=== PATIENT | male | born 1980 | race Hispanic/Latino ===

== ENCOUNTER 2020-01-07 23:38 | Observation (INO) | payer BC ==
[2020-01-08] MEDS ORDERED: NA CHLORIDE 0.9% 1,000 ML ONE ×2 (00:06→02:03)
[2020-01-08 00:53] LABS: Absolute Lymphocytes (CBC) 1.7 K/uL (0.7-4.9); Basophils % 0.2 % (0-1.3); Hematocrit 42.7 % (39.6-49.0); Lymphocytes % 11.1 % (15.3-44.8); MPV 10.5 fL (7.6-11.3)
[2020-01-08 01:27] LABS: Bilirubin Direct 0.2 mg/dL (0-0.2); Bilirubin Total 1.8 mg/dL (0.2-1.0); Potassium 3.4 mmol/L (3.5-5.1); Protein, Total 7.4 g/dL (6.4-8.2)
--- NOTE | 2020-01-08 02:23 | ER ---
Nurse's Notes [facility] Name: Rosales Clement IV Age: 39 yrs Sex: Male : 1980 Arrival Date: 01/07/2020 Time: 23:38 Bed 2 Private MD: Diagnosis: Rhabdomyolysis;Acute Kidney Injury Presentation: 01/06 23:40 Chief complaint: EMS states: "the pt reported working at the [employer] and was jd3 feeling like he got overheated and feeling crampy around 1800. he drank some water and rested then went back to work to finish his day. by 1999 when he got off he was hurting all over reporting he felt like everything was cramping. he said he got home and drank some more water and took electrolyte tabs. when we got there the pt was having a hard time even standing because of the pain. we started an IV and gave 1 L of NS.". Coronavirus screen: Proceed with normal triage. Ebola Screen: Patient negative for fever greater than or equal to 101.5 degrees Fahrenheit, and additional compatible Ebola Virus Disease symptoms. Initial Sepsis Screen: Does the patient meet any 2 criteria? No. Patient's initial sepsis screen is negative. Does the patient have a suspected source of infection? No. Patient's initial sepsis screen is negative. Risk Assessment: Do you want to hurt yourself or someone else? Patient reports no desire to harm self or others. Onset of symptoms was January 07, 2020. 23:40 Method Of Arrival: EMS: [facility] jd3 23:40 Acuity: HERIBERTO 3 jd3 Historical: - Allergies: 23:51 No Known Allergies; jd3 - Home Meds: 23:51 Adderall oral oral [Active]; jd3 - PMHx: 23:51 ADD/ADHD; jd3 - PSHx: 23:51 None; jd3 - Immunization history:: Adult Immunizations up to date. - Social history:: Smoking status: Patient reports the use of cigarette tobacco products, smokes one-half pack cigarettes per day. Screenin/27 00:04 Abuse screen: Denies threats or abuse. Nutritional screening: No deficits noted. jd3 Tuberculosis screening: No symptoms or risk factors identified. Fall Risk Ambulatory Aid- None/Bed Rest/Nurse Assist (0 pts). Gait- Normal/Bed Rest/Wheelchair (0 pts) Mental Status- Oriented to own ability (0 pts). Total Khoury Fall Scale indicates No Risk (0-24 pts). Assessment: 01/06 23:52 General: Appears in no apparent distress. uncomfortable, Behavior is calm, cooperative, jd3 appropriate for age. Pain: Complains of pain in right arm, left arm, right leg and left leg Quality of pain is described as crampy. Neuro: Level of Consciousness is awake, alert, obeys commands, Oriented to person, place, time, situation. Cardiovascular: Denies chest pain, Capillary refill < 3 seconds Patient's skin is warm and dry. Respiratory: Airway is patent Respiratory effort is even, unlabored, Respiratory pattern is regular, symmetrical, Denies cough, shortness of breath. GI: Abdomen is round non-distended, Abd is soft and non tender X 4 quads. Patient currently denies diarrhea, nausea, vomiting. : No signs and/or symptoms were reported regarding the genitourinary system. EENT: No signs and/or symptoms were reported regarding the EENT system. Derm: Skin is intact, Skin is dry, Skin is normal, Skin temperature is warm. Musculoskeletal: Circulation, motion, and sensation intact. Range of motion: intact in all extremities. 01/07 00:32 Reassessment: Patient appears in no apparent distress at this time. No changes from jd3 previously documented assessment. Patient and/or family updated on plan of care and expected duration. Pain level reassessed. Patient is alert, oriented x 3, equal unlabored respirations, skin warm/dry/pink. 01:36 Reassessment: Patient appears in no apparent distress at this time. Patient and/or mg2 family updated on plan of care and expected duration. Pain level reassessed. Patient is alert, oriented x 3, equal unlabored respirations, skin warm/dry/pink. 02:31 Reassessment: Patient appears in no apparent distress at this time. Patient and/or jd3 family updated on plan of care and expected duration. Pain level reassessed. Patient is alert, oriented x 3, equal unlabored respirations, skin warm/dry/pink. Patient states feeling better. 03:34 Reassessment: Patient appears in no apparent distress at this time. Patient and/or jd3 family updated on plan of care and expected duration. Pain level reassessed. Patient is alert, oriented x 3, equal unlabored respirations, skin warm/dry/pink. Vital Signs: 01/06 23:51 BP 125 / 56; Pulse 87; Resp 18 S; Temp 98.4(O); Pulse Ox 100% on R/A; Weight 102.06 kg jd3 (R); Height 5 ft. 6 in. (167.64 cm) (R); Pain 6/10; 01/07 00:33 BP 119 / 69; Pulse 95; Resp 17 S; Pulse Ox 100% on R/A; jd3 01:36 BP 132 / 72; Pulse 89; Resp 18; Pulse Ox 99% on R/A; mg2 02:31 BP 118 / 64; Pulse 93; Resp 17 S; Pulse Ox 100% on R/A; jd3 03:35 BP 100 / 50; Pulse 88; Resp 16 S; Pulse Ox 100% on R/A; jd3 01/06 23:51 Body Mass Index 36.32 (102.06 kg, 167.64 cm) [facility] ED Course: 01/06 23:38 Patient arrived in ED. ds1 23:41 Maxwell Arellano PA is PHCP. jmm 23:41 Pako Rodrigues MD is Attending Physician. jm 23:50 Triage completed. jd3 23:51 Arm band placed on. j 01/07 00:03 Venkatesh Candelario, RN is Primary Nurse. jd3 00:05 Patient has correct armband on for positive identification. Bed in low position. Call [facility] light in reach. Side rails up X 1. monitor car operator on. Pulse ox on. NIBP on. 00:05 Maintain EMS IV. Dressing intact. Good blood return noted. Site clean \\T\\ dry. Gauge \\T\\ eve 3 site: 20 G right AC. 02:17 Dmitry Pedro is Hospitalizing Provider. jm 03:34 No provider procedures requiring assistance completed. Patient admitted, IV remains in j place. Administered Medications: 00:00 Drug: NS 0.9% 1000 ml Route: IV; Rate: 1 bolus; Site: right antecubital; mg2 01:00 Follow up: Response: No adverse reaction; IV Status: Completed infusion; IV Intake: jd3 1000ml 01:55 Drug: NS 0.9% 1000 ml Route: IV; Rate: 1 bolus; Site: right antecubital; jd3 02:32 Follow up: Response: No adverse reaction; IV Status: Completed infusion; IV Intake: jd3 1000ml Intake: 01:00 IV: 1000ml; Total: 1000ml. jd3 02:32 IV: 1000ml; Total: 2000ml. jd3 Outcome: 02:22 Decision to Hospitalize by Provider. jesusita 03:34 Admitted to Med/surg accompanied by tech, via wheelchair, room 209, with chart, Report jd3 called to Keisha Dinh 03:34 Condition: stable 03:34 Instructed on the need for admit, Demonstrated understanding of instructions. 03:59 Patient left the ED. derian Signatures: Maxwell Arellano PA PA jmm Sanford, Demi ds1 Venkatesh Candelario, RN RN jd3 Dallin Mayfield RN RN mg2
--- NOTE | 2020-01-08 02:23 | EDPHYS ---
Physician Documentation [facility] Name: Rosales Clement IV Age: 39 yrs Sex: Male : 1980 Arrival Date: 01/07/2020 Time: 23:38 Bed 2 Private MD: ED Physician Pako Rodrigues HPI: 01/06 23:49 This 39 yrs old Male presents to ER via Unassigned with complaints of jmm Abdominal Cramping. 23:49 This is a 39 year old male with no chronic medical conditions that presents to the ED jmm with complaints of diffuse cramping which began earlier this evening after he got home from work. Patient states he worked outside earlier today for a prolonged period of time. Patient took gatorade with no relief. Given IFV en route by ems which decreased cramping. . Historical: - Allergies: 23:51 No Known Allergies; jd3 - Home Meds: 23:51 Adderall oral oral [Active]; jd3 - PMHx: 23:51 ADD/ADHD; jd3 - PSHx: 23:51 None; jd3 - Immunization history:: Adult Immunizations up to date. - Social history:: Smoking status: Patient reports the use of cigarette tobacco products, smokes one-half pack cigarettes per day. ROS: 23:49 Constitutional: Negative for fever, chills, and weight loss, Cardiovascular: Negative jmm for chest pain, palpitations, and edema, Respiratory: Negative for shortness of breath, cough, wheezing, and pleuritic chest pain. 23:49 Abdomen/GI: Positive for abdominal pain, Negative for vomiting. 23:49 Back: Positive for pain with movement. 23:49 All other systems are negative. Exam: 23:49 Constitutional: This is a well developed, well nourished patient who is awake, alert, jmm and in no acute distress. Head/Face: atraumatic. Eyes: EOMI, no conjunctival erythema appreciated ENT: Moist Mucus Membranes Neck: Trachea midline, Supple Chest/axilla: Normal chest wall appearance and motion. Cardiovascular: Regular rate and rhythm. No edema appreciated Respiratory: Normal respirations, no respiratory distress appreciated Abdomen/GI: Non distended, soft Back: Normal ROM Skin: General appearance color normal MS/ Extremity: Moves all extremities, no obvious deformities appreciated, no edema noted to the lower extremities Neuro: Awake and alert, normal gait Psych: Behavior is normal, Mood is normal, Patient is cooperative and pleasant Vital Signs: 23:51 BP 125 / 56; Pulse 87; Resp 18 S; Temp 98.4(O); Pulse Ox 100% on R/A; Weight 102.06 kg jd3 (R); Height 5 ft. 6 in. (167.64 cm) (R); Pain 11/21; 01/07 00:33 BP 119 / 69; Pulse 95; Resp 17 S; Pulse Ox 100% on R/A; jd3 01:36 BP 132 / 72; Pulse 89; Resp 18; Pulse Ox 99% on R/A; mg2 02:31 BP 118 / 64; Pulse 93; Resp 17 S; Pulse Ox 100% on R/A; jd3 03:35 BP 100 / 50; Pulse 88; Resp 16 S; Pulse Ox 100% on R/A; jd3 01/06 23:51 Body Mass Index 36.32 (102.06 kg, 167.64 cm) [facility] MDM: 01/06 23:42 Patient medically screened. [facility] 01/07 02:15 Data reviewed: vital signs, nurses notes. Counseling: I had a detailed discussion with [facility] the patient and/or guardian regarding: the historical points, exam findings, and any diagnostic results supporting the discharge/admit diagnosis, lab results, the need for further work-up and treatment in the hospital. ED course: I discussed the patient with Dr. Pedro whom accepted admission. . 01/06 23:48 Order name: Basic Metabolic Panel; Complete Time: 02:06 [facility] 01/06 23:48 Order name: CBC with Diff; Complete Time: 00:57 [facility] 01/06 23:48 Order name: Hepatic Function; Complete Time: 02:06 [facility] 01/06 23:48 Order name: Lipase; Complete Time: 02:06 [facility] 01/06 23:48 Order name: CPK; Complete Time: 02:06 [facility] 01/06 23:48 Order name: IV Saline Lock; Complete Time: 00:00 [facility] 01/06 23:48 Order name: Labs collected and sent; Complete Time: 00:01 [facility] Administered Medications: 00:00 Drug: NS 0.9% 1000 ml Route: IV; Rate: 1 bolus; Site: right antecubital; mg2 01:00 Follow up: Response: No adverse reaction; IV Status: Completed infusion; IV Intake: jd3 1000ml 01:55 Drug: NS 0.9% 1000 ml Route: IV; Rate: 1 bolus; Site: right antecubital; jd3 02:32 Follow up: Response: No adverse reaction; IV Status: Completed infusion; IV Intake: jd3 1000ml Disposition: 06:07 Co-signature as Attending Physician, Pako Rodrigues MD I agree with the assessment and tw4 plan of care. Disposition: 01/08/20 02:22 Hospitalization ordered by Dmitry Pedro for Observation. Preliminary diagnosis are Rhabdomyolysis, Acute Kidney Injury. - Bed requested for Telemetry/MedSurg (observation). - Status is Observation. jd3 - Condition is Stable. - Problem is new. - Symptoms have improved. Signatures: Dispatcher [employer] EDMS Maxwell Arellano PA PA jmm Garcia, Cindy, BARBER RN cg Venkatesh Candelario RN RN Pako Piña MD MD tw Dallin Mayfield RN RN mg2 Corrections: (The following items were deleted from the chart) 03:16 02:22 Hospitalization Ordered by Dmitry Pedro for Observation. Preliminary diagnosis cg is Rhabdomyolysis; Acute Kidney Injury. Bed requested for Telemetry/MedSurg (observation). Status is Observation. Condition is Stable. Problem is new. Symptoms have improved. temo 03:59 03:16 01/08/2020 02:22 Hospitalization Ordered by Dmitry Pedro for Observation. jd3 Preliminary diagnosis is Rhabdomyolysis; Acute Kidney Injury. Bed requested for Telemetry/MedSurg (observation). Status is Observation. Condition is Stable. Problem is new. Symptoms have improved. cg
--- NOTE | 2020-01-08 03:01 | P.HP ---
Certification for Inpatient Patient admitted to: Observation With expected LOS: <2 Midnights Practitioner: I am a practitioner with admitting privileges, knowledge of patient current condition, hospital course, and medical plan of care. Services: Services provided to patient in accordance with Admission requirements found in Title 42 Section 412.3 of the Code of Federal Regulations Patient History Date of Service: 01/08/20 Reason for admission: Muscle spasms History of Present Illness: 39-year-old gentleman with no known medical history presented to the ED with a complaint of muscle spasms all over, which started this afternoon. Patient stated [place] [employer] He had to pause work due to the muscle spasms and sweating. Symptoms worsened to the point he could not get up and walk. Spouse called EMS and patient was brought to the ED. He had blood work in the ED shows acute renal failure with elevated creatinine and elevated CK. He also has leukocytosis. Patient is placed under observation for further management JEMAL and rhabdomyolysis. - Past Medical/Surgical History Diabetic: No -: None - Family History Mother -: Diabetes - Social History Smoking Status: Current every day smoker Alcohol use: Yes Place of Residence: Home Review of Systems Other: Except as documented, all other systems reviewed and negative. Physical Examination - Physical Exam General: Alert, In no apparent distress, Oriented x3 HEENT: Normocephalic, Mucous membr. moist/pink, Sclerae nonicteric Respiratory: Clear to auscultation bilaterally, Normal air movement Gastrointestinal: Normal bowel sounds, Soft and benign, Non-distended, No tenderness Musculoskeletal: No swelling, No erythema Integumentary: No rashes Neurological: Normal speech, Normal strength at 5/5 x4 extr, Cranial nerves 3-12 intact - Studies Laboratory Data (last 24 hrs) 01/08/20 00:00: WBC 15.4 H, Hgb 14.7, Hct 42.7, Plt Count 245 01/08/20 00:00: Sodium 138, Potassium 3.4 L, BUN 23 H, Creatinine 2.39 H, Glucose 109 H, Total Bilirubin 1.8 H, AST 35, ALT 39, Alkaline Phosphatase 115, Lipase 63 L Assessment and Plan - Problems (Diagnosis) (1) Acute renal failure Current Visit: Yes Status: Acute (2) Rhabdomyolysis Current Visit: Yes Status: Acute (3) Leukocytosis Current Visit: Yes Status: Acute - Plan Place under observation. Rehydrate with IV normal saline. Monitor renal function and electrolytes. Daily CK. Monitor CBC. - Advance Directives Does patient have a Living Will: No Does patient have a Durable POA for Healthcare: No
[2020-01-08] MEDS ORDERED: ACETAMINOPHEN 500 MG TAB PO PRN (04:08)
[2020-01-08 04:13] VITALS: BMI 35.0
[2020-01-08] MEDS ORDERED: POTASSIUM CL SA 10 MEQ TAB PO ONE ×2 (04:49→13:14)
[2020-01-08] MEDS: NA CHLORIDE 0.9% 1,000 ML IV SCH ×3 (05:03→21:42)
[2020-01-08] MEDS: HEPARIN 5000 UNIT/ML 1 ML VIAL SQ SCH ×2 (09:18→17:30)
[2020-01-09] MEDS: HEPARIN 5000 UNIT/ML 1 ML VIAL SQ SCH ×2 (00:52→09:10)
[2020-01-09 04:48] LABS: Absolute Lymphocytes (CBC) 3.4 K/uL (0.7-4.9); Basophils % 0.8 % (0-1.3); Hematocrit 38.3 % (39.6-49.0); Lymphocytes % 42.5 % (15.3-44.8); MPV 10.3 fL (7.6-11.3); RBC Red Blood Cell Count 4.12 M/uL (4.33-5.43)
[2020-01-09 05:13] LABS: BUN Blood Urea Nitrogen 11 mg/dL (7-18); Bicarbonate 26 mmol/L (21-32); Glucose Level 99 mg/dL (74-106); Magnesium 2.1 mg/dL (1.8-2.4); Phosphorus 3.4 mg/dL (2.5-4.9); Sodium Level 144 mmol/L (136-145)
[2020-01-09 05:14] LABS: Creatine Phosphokinase 2559 U/L (39-308)
[2020-01-09] MEDS ORDERED: NA CHLORIDE 0.9% 500 ML IV ONE (05:43)
[2020-01-09 06:57] LABS: Urine Appearance CLEAR; Urine Bilirubin NEGATIVE (NEG); Urine Blood NEGATIVE (NEG); Urine Color YELLOW; Urine Glucose NEGATIVE (NEG); Urine Protein NEGATIVE (NEG); Urine Specific Gravity 1.015 (1.005-1.030); Urine Urobilinogen 0.2 mg/dL (0.2-1.0)
[2020-01-09 07:13] LABS: Urine Bacteria NONE SEEN /HPF (NONE SEEN); Urine Culture Reflex Order NOT NEEDED; Urine RBC <5 /HPF (NONE SEEN)
[2020-01-09 08:58] LABS: CKMB Creatine Kinase MB 9.9 ng/mL (0.3-3.6); NT PRO-BNP 240 pg/mL (<125); Troponin I < 0.02 ng/mL (0.0-0.045)
[2020-01-09 08:59] LABS: Creatine Phosphokinase 2361 U/L (39-308)
[2020-01-09 10:40] VITALS: O2SAT 98
[2020-01-09 11:57] VITALS: BP 109/58; TEMP 97.1
[2020-01-09 13:08] LABS: CKMB Creatine Kinase MB 9.4 ng/mL (0.3-3.6)
--- NOTE | 2020-01-09 13:08 | P.DS ---
Admission Date: 01/08/20 Discharge Date: 01/10/20 Disposition: ROUTINE DISCHARGE Discharge Condition: GOOD Reason for Admission: Muscle spasms Brief History of Present Illness: 39-year-old gentleman with no known medical history presented to the ED with a complaint of muscle spasms all over, which started this afternoon. Patient stated he [place] [employer] He had to pause work due to the muscle spasms and sweating. Symptoms worsened to the point he could not get up and walk. Spouse called EMS and patient was brought to the ED. He had blood work in the ED shows acute renal failure with elevated creatinine and elevated CK. He also has leukocytosis. Patient is placed under observation for further management JEMAL and rhabdomyolysis. Hospital Course: (1) Acute renal failure (2) Rhabdomyolysis (3) Leukocytosis Patient was admitted and was monitored closely under telemetry. He was started on aggressive hydration. Renal parameters more monitored. He responded well to the treatment. Electrolytes are monitored and replaced accordingly. his CK levels were trended. CK levels still high but the patient wanted go home and wanted to follow up as an outpatient. Advised patient to take lots of oral fluids along with Gatorade or Pedialyte, Patient verbalized understanding and wanted to go home and is being discharged home today in a stable condition with advice to follow up with PCP in 1 week. Vital Signs/Physical Exam: Temp Pulse Resp BP Pulse Ox 97.1 F 59 16 109/58 L 98 01/09/20 11:56 01/09/20 11:56 01/09/20 11:56 01/09/20 11:56 01/09/20 11:56 General: Alert, In no apparent distress HEENT: Atraumatic, Normocephalic Neck: Supple Respiratory: Clear to auscultation bilaterally Cardiovascular: Regular rate/rhythm, Normal S1 S2 Capillary refill: <2 Seconds Gastrointestinal: Soft and benign, W/out hepatosplenomegaly Musculoskeletal: No clubbing Neurological: Normal speech, Normal strength at 5/5 x4 extr Laboratory Data at Discharge: WBC 8.0 K/uL (4.3-10.9) D 01/09/20 04:17 Hgb 13.4 g/dL (13.6-17.9) L 01/09/20 04:17 Hct 38.3 % (39.6-49.0) L 01/09/20 04:17 Plt Count 206 K/uL (152-406) 01/09/20 04:17 Sodium 144 mmol/L (136-145) 01/09/20 04:17 Potassium 4.0 mmol/L (3.5-5.1) 01/09/20 04:17 BUN 11 mg/dL (7-18) 01/09/20 04:17 Creatinine 0.89 mg/dL (0.55-1.3) D 01/09/20 04:17 Glucose 99 mg/dL (74-106) 01/09/20 04:17 Phosphorus 3.4 mg/dL (2.5-4.9) 01/09/20 04:17 Magnesium 2.1 mg/dL (1.8-2.4) 01/09/20 04:17 Total Bilirubin 1.8 mg/dL (0.2-1.0) H 01/08/20 00:00 AST 35 U/L (15-37) 01/08/20 00:00 ALT 39 U/L (12-78) 01/08/20 00:00 Alkaline Phosphatase 115 U/L (45-117) 01/08/20 00:00 Troponin I < 0.02 ng/mL (0.0-0.045) 01/09/20 08:11 Lipase 63 U/L (73-393) L 01/08/20 00:00 Home Medications: Dextroamphetamine/Amphetamine [Adderall 30 mg Tablet] 30 mg PO DAILY 01/08/20 Time spent managing pt's care (in minutes): 40
== END 2020-01-09 15:31 | disposition home or self-care (01) ==
LOC: ER 23:38 → ERHOLD 01-08 03:26 → 2ND 01-08 03:35 → INTOOBSV 01-09 07:58 → OBSVTOIN 01-09 07:58
PROVIDERS: ADMIT Internal Medicine; ATTEND Family Medicine
DX: N17.9 Acute kidney failure, unspecified (principal); M62.82 Rhabdomyolysis; D72.829 Elevated white blood cell count, unspecified; F90.9 Attention-deficit hyperactivity disorder, unspecified type; Z11.59 Encounter for screening for other viral diseases; F17.210 Nicotine dependence, cigarettes, uncomplicated; Z83.3 Family history of diabetes mellitus
CPT/HCPCS: 96361; 85025 ×2; 81001; 80048 ×2; 36415 ×2; 83735; 82550 ×4; 84100; 84132; 80076; 83605; 84484; 82553 ×2; 83690; 83880; 94760 ×4; 96360; 99285; U0002; J1644 ×4; J7040; J7030 ×5; G0378 ×3

== ENCOUNTER 2020-04-04 20:58 | Emergency (ER) | payer BC ==
[2020-04-04] MEDS ORDERED: KETOROLAC 30 MG/ML INJ ONE (21:32)
--- NOTE | 2020-04-04 22:34 | ER ---
Nurse's Notes [facility] Name: Rosales Clement IV Age: 40 yrs Sex: Male : 1980 Arrival Date: 04/04/2020 Time: 21:00 Bed 8 Private MD: Aguilar Oliveira E Diagnosis: Internal derangement of knee Presentation: 04/04 21:10 Chief complaint: Patient states: RIGHT KNEE IS HURTING FOR OVER A WEEK NOW. SWELLING rv SUBSIDED AFTER PUTTING ICE PACK AND TAKING ASPIRIN. PAIN IS CONSTANT, 4/10. RADIATES DOWN TO LOWER LEG. DENIES TRAUMA. Coronavirus screen: Client denies travel out of the [place] in the last 14 days. Ebola Screen: No symptoms or risks identified at this time. Initial Sepsis Screen: Does the patient meet any 2 criteria? No. Patient's initial sepsis screen is negative. Does the patient have a suspected source of infection? No. Patient's initial sepsis screen is negative. Risk Assessment: Do you want to hurt yourself or someone else? Patient reports no desire to harm self or others. Onset of symptoms is unknown. 21:10 Method Of Arrival: Ambulatory rv 21:10 Acuity: HERIBERTO 4 rv Triage Assessment: 21:12 General: Appears uncomfortable, Behavior is calm, cooperative. Pain: Complains of pain rv in right knee Pain radiates to right calf Pain currently is 4 out of 10 on a pain scale. at worst was 9 out of 10 on a pain scale. EENT: No signs and/or symptoms were reported regarding the EENT system. Neuro: Level of Consciousness is awake, alert, obeys commands, Oriented to person, place, time, situation. Cardiovascular: Patient's skin is warm and dry. Respiratory: Airway is patent Respiratory effort is even, unlabored, Breath sounds are clear bilaterally. Derm: Skin is intact. Historical: - Allergies: 21:12 No Known Allergies; rv - PMHx: 22:42 ADD/ADHD; ll2 - PSHx: 21:12 None; rv - Immunization history:: Adult Immunizations up to date. - Social history:: Smoking status: Patient reports the use of cigarette tobacco products, smokes one-half pack cigarettes per day. Screenin:13 Abuse screen: Denies threats or abuse. Denies injuries from another. Nutritional rv screening: No deficits noted. Tuberculosis screening: No symptoms or risk factors identified. Fall Risk None identified. Assessment: 21:00 Reassessment: Patient and/or family updated on plan of care and expected duration. Pain ll2 level reassessed. Patient is alert, oriented x 3, equal unlabored respirations, skin warm/dry/pink. Reassessment: SEE TRIAGE ASSESSMENT. Vital Signs: 21:10 BP 138 / 90; Pulse 102; Resp 18; Temp 98.4; Pulse Ox 100% ; Weight 99.79 kg; Height 5 rv ft. 6 in. (167.64 cm); Pain 4/10; 21:30 BP 134 / 88; Pulse 96; Resp 18; Pulse Ox 97% on R/A; ll2 22:41 BP 122 / 78; Pulse 89; Resp 16; Pulse Ox 99% on R/A; ll2 21:10 Body Mass Index 35.51 (99.79 kg, 167.64 cm) rv ED Course: 21:00 Patient arrived in ED. am2 21:00 Aguilar Oliveira MD is Private Physician. am2 21:04 José George, BARBER is Primary Nurse. rv 21:07 Maxwell Arellano PA is PHCP. jmm 21:07 Pako Rodrigues MD is Attending Physician. jmm 21:12 Triage completed. rv 21:12 Arm band placed on right wrist. Patient placed in the treatment room, on a stretcher, rv Patient notified of wait time. 21:14 Patient has correct armband on for positive identification. Bed in low position. Call rv light in reach. Pulse ox on. NIBP on. 21:41 Knee Right 3 View XRAY In Process Unspecified. EDMS 22:34 Neto Martinez MD is Referral Physician. jmm 22:42 No provider procedures requiring assistance completed. Patient did not have IV access ll2 during this emergency room visit. 22:44 US Extremity Venous Unilateral Ltd Sent. ll2 22:53 US Extremity Venous Unilateral Ltd In Process Unspecified. EDMS Administered Medications: 21:20 Drug: Ketorolac 30 mg Route: IM; Site: right deltoid; rv 22:44 Follow up: Response: No adverse reaction; Pain is decreased ll2 Outcome: 22:34 Discharge ordered by . jmm 22:43 Discharged to home ambulatory. ll2 22:43 Condition: stable 22:43 Discharge instructions given to patient, Instructed on discharge instructions, follow up and referral plans. medication usage, Demonstrated understanding of instructions, follow-up care, medications, Prescriptions given X 1. 22:44 Patient left the ED. ll2 Signatures: Dispatcher [employer] EDMS Maxwell Arellano PA PA jmm Moreno, Amanda am2 José George RN RN rv Fang Leija RN RN ll2 Corrections: (The following items were deleted from the chart) : 21:12 PMHx: ADD/ADHD; rv ll2 22:42 21:30 BP 122 / 77; Pulse 89bpm; Resp 16bpm; Pulse Ox 99% RA; ll2 ll2
--- NOTE | 2020-04-04 22:34 | EDPHYS ---
Physician Documentation [facility] Name: Rosales Clement IV Age: 40 yrs Sex: Male : 1980 Arrival Date: 04/04/2020 Time: 21:00 Bed 8 Private MD: Aguilar Oliveira E ED Physician Pako Rodrigues HPI: 04/04 21:18 This 40 yrs old Male presents to ER via Ambulatory with complaints of Knee jmm Pain. 21:18 The patient presents with pain, that is acute. Onset: The symptoms/episode jmm began/occurred gradually, 2 week(s) ago. Modifying factors: The symptoms are alleviated by nothing. the symptoms are aggravated by movement. This is a 40 year old female with a history of ADHD that presents to the ED with complaints of right knee pain beginning approx 2 week ago. Patient states he walks around 6 to 10 miles a day at work. Pain was initially anterior. The pain has now migrated to the right posterior medial region of the knee. Denies fever, denies chills. Historical: - Allergies: 21:12 No Known Allergies; rv - PMHx: 22:42 ADD/ADHD; ll2 - PSHx: 21:12 None; rv - Immunization history:: Adult Immunizations up to date. - Social history:: Smoking status: Patient reports the use of cigarette tobacco products, smokes one-half pack cigarettes per day. ROS: 21:18 Constitutional: Negative for fever, chills, and weight loss, Cardiovascular: Negative jmm for chest pain, palpitations, and edema, Respiratory: Negative for shortness of breath, cough, wheezing, and pleuritic chest pain. 21:18 MS/extremity: Positive for pain. 21:18 All other systems are negative. Exam: 21:18 Constitutional: This is a well developed, well nourished patient who is awake, alert, jmm and in no acute distress. Head/Face: atraumatic. Eyes: EOMI, no conjunctival erythema appreciated ENT: Moist Mucus Membranes Neck: Trachea midline, Supple Chest/axilla: Normal chest wall appearance and motion. Cardiovascular: Regular rate and rhythm. No edema appreciated Respiratory: Normal respirations, no respiratory distress appreciated Abdomen/GI: Non distended, soft Back: Normal ROM Skin: General appearance color normal 21:18 Musculoskeletal/extremity: mild swelling noted to the right knee, right medial posterior region ttp, FROM appreciated, compartments are soft, no erythema appreciated, no induration appreciated. 21:18 Skin: Appearance: Color: normal in color. 21:18 Neuro: Orientation: is normal, Mentation: is normal, Memory: is normal. 21:18 Psych: Behavior/mood is pleasant, cooperative. Vital Signs: 21:10 BP 138 / 90; Pulse 102; Resp 18; Temp 98.4; Pulse Ox 100% ; Weight 99.79 kg; Height 5 rv ft. 6 in. (167.64 cm); Pain 4/10; 21:30 BP 134 / 88; Pulse 96; Resp 18; Pulse Ox 97% on R/A; ll2 22:41 BP 122 / 78; Pulse 89; Resp 16; Pulse Ox 99% on R/A; ll2 21:10 Body Mass Index 35.51 (99.79 kg, 167.64 cm) rv MDM: 21:[address] [facility] 22:33 Data reviewed: vital signs, nurses notes. Counseling: I had a detailed discussion with [facility] the patient and/or guardian regarding: the historical points, exam findings, and any diagnostic results supporting the discharge/admit diagnosis, radiology results, the need for outpatient follow up, to return to the emergency department if symptoms worsen or persist or if there are any questions or concerns that arise at home. ED course: imaging studies negative. patient is advised to follow up with ortho for reevaluation. Patient understood and agrees with the plan of care. . 04/04 21:17 Order name: Knee Right [address] [facility] 04/04 21:17 Order name: US Extremity Venous Unilateral Ltd [facility] 04/04 22:17 Order name: Knee Immobilizer; Complete Time: 22:[address] [facility] Administered Medications: 21:20 Drug: Ketorolac 30 mg Route: IM; Site: right deltoid; rv 22:44 Follow up: Response: No adverse reaction; Pain is decreased ll2 Disposition: 04/05 06:07 Co-signature as Attending Physician, Pako Rodrigues MD I agree with the assessment and tw4 plan of care. Disposition: 04/04/20 22:34 Discharged to Home. Impression: Internal derangement of knee. - Condition is Stable. - Discharge Instructions: Knee Pain. - Prescriptions for Ibuprofen 800 mg Oral Tablet - take 1 tablet by ORAL route every 8 hours As needed take with food; 30 tablet. - Medication Reconciliation Form, Thank You Letter, Antibiotic Education, Prescription Opioid Use form. - Follow up: Neto Martinez MD; When: 2 - 3 days; Reason: Recheck today's complaints, Continuance of care, Re-evaluation by your physician. Signatures: Dispatcher [employer] EDMS Maxwell Arellano PA PA jmm Wadley, Terrence, MD MD tw4 José George, RN RN rv Fang Leija RN RN ll2 Corrections: (The following items were deleted from the chart) 04/04 22:42 21:12 PMHx: ADD/ADHD; rv ll2 22:44 22:34 04/04/2020 22:34 Discharged to Home. Impression: Internal derangement of knee. ll2 Condition is Stable. Forms are Medication Reconciliation Form, Thank You Letter, Antibiotic Education, Prescription Opioid Use. Follow up: Dr. Neto Martinez; When: 2 - 3 days; Reason: Recheck today's complaints, Continuance of care, Re-evaluation by your physician. [email or web address]
[2020-04-04 23:29] VITALS: TEMP 98.4
[2020-04-04 23:35] VITALS: BP 122/78; O2SAT 99
--- NOTE | 2020-04-05 08:30 | RAD REPORT ---
EXAM DESCRIPTION: US - Extremity Venous Uni Ltd - 04/04/2020 10:53 pm CLINICAL HISTORY: PAIN Leg swelling and edema. COMPARISON: No comparisons FINDINGS: Right lower extremity venous system was interrogated with Doppler technique. Normal flow, compressibility and augmentation was noted. There is no DVT present. IMPRESSION: No evidence of right lower extremity deep venous thrombosis.
--- NOTE | 2020-04-05 08:30 | RAD REPORT ---
EXAM DESCRIPTION: RAD - Knee Right 3 View - 04/04/2020 9:45 pm CLINICAL HISTORY: knee pain Pain and swelling. COMPARISON: No comparisons FINDINGS: A small suprapatellar joint effusion is present. Mild medial compartment space narrowing i s present. No fracture, dislocation aggressive marrow pattern.
== END 2020-04-04 22:44 | disposition home or self-care (01) ==
LOC: ER 20:58
DX: M23.91 Unspecified internal derangement of right knee (principal); F17.210 Nicotine dependence, cigarettes, uncomplicated
CPT/HCPCS: 93971; 96372; 99284

== ENCOUNTER 2024-08-22 12:23 | Emergency (ER) | payer BC, SELFPAY ==
--- OUTSIDE RECORDS SUMMARY | 2024-08-22 12:25 | XMS REPORT | Continuity of Care Document ---
Author Name Unknown Address [address] [place] [address] [facility] Address [address] [place] [address] Care Team Providers Care Laborer [employer] Name Role Phone Unavailable Unavailable Unavailable Problems Condition Name Condition Details Condition Category Status Onset Date Resolution Date Last Treatment Date Treating Clinician Comments Source [id number] Primary osteoarthr itis of right knee Problem Active [facility] Social History Social Habit Start Date Stop Date Quantity Comments Source History of Tobacco Use Light tobacco smoker [facility] Sex Assigned At [facility] Smoking Status Start Date Stop Date Source Light tobacco smoker 2023-10-05 00:00:00 [facility] Medications Ordered Medication Name Filled Medication Name Start Date Stop Date Current Medication? Ordering Clinician Indication Dosage Frequency Signature (SIG) Comments Components Source BUPivacaine HCl BUPivacaine HCl 10-04 00:00: 00 No 4mL [facility] Kenalog (Triamcinol one) Kenalog (Triamcinol one) 10-04 00:00: 00 No 1mL [facility] Bupivicaine Commerce Bupivicaine Commerce 2019-06 00:00: 00 No 2.5mg [facility] Kenalog (Triamcinol one) Kenalog (Triamcinol one) 2019-06 00:00: 00 No 40mg [facility] Adderall Adderall No Adderall Ibuprofen 800 MG Ibuprofen 800 MG No Ibuprofen 800 MG Rosuvastati n Calcium 10 MG Rosuvastati n Calcium 10 MG No 1{table t} QD Rosuvastat in Calcium 10 MG Amphetamine -Dextroamph et ER 20 MG Amphetamine -Dextroamph et ER 20 MG No Amphetamin e-Dextroam phet ER 20 MG Vital Signs Vital Name Observation Time Observation Value Comments S maco height 2023-10-05 15:00:00 66 [in_i] [facility] weight 2023-10-05 15:00:00 265 [lb_av] Comm on [facility] temperature 2023-10-05 15:00:00 98.4 [degF] Com mon [facility] bmi 2023-10-05 15:00:00 42.77 kg/m2 Comm [facility] blood pressure systolic 2023-10-05 15:00:00 128 mm[Hg] [facility] blood pressure diastolic 2023-10-05 15:00:00 78 mm[Hg] [facility] Encounters Start Date/Time End Date/Time Encounter Type Admission Type Attending Clinicians Care Facility Care Department Encounter ID Source 2024-02-07 09:48:00 [facility] [id number] [facility] 2023-10-07 15:23:01 [facility] [id number] [facility] 2023-10-05 14:27:00 [facility] [id number] [facility] 2023-10-04 10:14:00 [facility] [id number] [facility] 2021-07-09 12:54:47 Outpatient [facility] [id number] [facility] 2021-07-09 12:53:45 Outpatient [facility] [id number] [facility] 2021-07-09 12:53:40 Outpatient [facility] [id number] [facility] 2021-07-09 12:03:20 Outpatient [facility] [id number] [facility] 2023-10-05 00:00:00 2023-10-05 00:00:00 CONSULT - OFFICE, L4 [facility] [id number] [facility] 2021-10-15 00:00:00 2021-10-15 00:00:00 (TEL) [facility] [id number] [facility] 2020-04-22 00:00:00 2020-04-22 00:00:00 Outpatient [facility] [id number] [facility]
--- NOTE | 2024-08-22 12:51 | EDPHYS ---
Physician Documentation [facility] Name: Rosales Clement IV Age: 44 yrs Sex: Male : 1980 Arrival Date: 08/22/2024 Time: 12:23 Bed IW2 Private MD: ED Physician Juan Rollins HPI: 08/22 12:48 This 44 yrs old Male presents to ER via Ambulatory with complaints of Knee rn pain. 12:48 Patient reports chronic knee pain, for years, sees Dr. Martinez and gets cortisone rn injections. States the only thing that helps him is cortisone injections. Came to see if he could get a cortisone injection today. Already has appointment with Dr. Martinez in 1 week. No fever or chills. This feels identical to previous episodes of knee pain.. Historical: - Allergies: 12:40 No Known Allergies; ap3 - PMHx: 12:40 ADD/ADHD; ap3 - Immunization history:: Client reports receiving the 2nd dose of the Covid vaccine. - Infectious Disease History:: Denies. - Social history:: Smoking status: Patient reports the use of cigarette tobacco products, Reported history of juuling and/or vaping. - Family history:: not pertinent. - Hospitalizations: : No recent hospitalization is reported. ROS: 12:48 Constitutional: Negative for fever, chills, and weight loss, MS/Extremity: Positive for rn knee pain, negative for injury Exam: 12:48 Constitutional: This is a well developed, well nourished patient who is awake, alert, rn and in no acute distress. MS/ Extremity: Mild right knee pain with range of motion, no obvious effusion. No overlying skin changes. No warmth or redness. Vital Signs: 12:38 BP 144 / 85; Pulse 119; Resp 18; Temp 98.4; Pulse Ox 100% ; Weight 120.2 kg; Height 5 ap3 ft. 6 in. ; Pain 7/10; 12:38 Body Mass Index 42.77 (120.20 kg, 167.64 cm) ap3 12:38 Pain Scale: Adult ap3 MDM: 12:35 Medical Screening Exam initiated rn 12:48 Differential diagnosis: Chronic knee pain, mild effusion, arthritis. Data reviewed: rn vital signs, nurses notes, and as a result, I will discharge patient. Counseling: I had a detailed discussion with the patient and/or guardian regarding the historical points, exam findings, and any diagnostic results supporting the discharge/admit diagnosis, the need for outpatient follow up, to return to the emergency department if symptoms worsen or persist or if there are any questions or concerns that arise at home. Special discussion: I discussed with the patient/guardian in detail that at this point there is no indication for admission to the hospital. It is understood, however, that if the symptoms persist or worsen the patient needs to return immediately for re-evaluation. Based on the history and exam findings, there is no indication for further emergent testing or inpatient evaluation. I discussed with the patient/guardian the need to see the orthopedic surgeon for further evaluation of the symptoms. ED course: Patient denies injury, no indication for emergent imaging or aspiration of the knee at this time. Patient states feels identical to previous episodes of knee pain. Already has appointment with Dr. Martinez for cortisone injection.. Administered Medications: No medications were administered Disposition Summary: 08/22/24 12:50 Discharge Ordered Notes: Location: Home rn Problem: chronic rn Symptoms: are unchanged rn Condition: Stable rn Diagnosis - Pain in right knee rn Followup: rn - With: Neto Martinez MD - When: As needed - Reason: Recheck today's complaints, Re-evaluation by your physician Discharge Instructions: - Discharge Summary Sheet rn - Acute Knee Pain, Adult rn Forms: - Medication Reconciliation Form rn - Antibiotic journeyman millwright - Prescription Opioid Use rn - Patient Portal Instructions rn - Leadership Thank You Letter rn Signatures: Juan Rollins MD MD rn Prokisch, Amanda, RN RN ap3
--- NOTE | 2024-08-22 12:51 | ER ---
Nurse's Notes [facility] Name: Rosales Clement IV Age: 44 yrs Sex: Male : 1980 Arrival Date: 08/22/2024 Time: 12:23 Bed IW2 Private MD: Diagnosis: Pain in right knee Presentation: 08/22 12:38 Chief complaint: Patient states: he has been having right knee pain for 3-4 days, and ap3 it has been getting harder to walk. patient currently rates his pain as a 7/10 on the pain scale. Coronavirus screen: At this time, the client does not indicate any symptoms associated with coronavirus-19. Ebola Screen: No symptoms or risks identified at this time. Initial Sepsis Screen: Does the patient meet any 2 criteria? HR > 90 bpm. Does the patient have a suspected source of infection?. Risk Assessment: Do you want to hurt yourself or someone else? Patient reports no desire to harm self or others. Onset of symptoms is unknown. 12:38 Method Of Arrival: Ambulatory ap3 12:38 Acuity: HERIBERTO 4 ap3 Triage Assessment: 12:40 General: Appears in no apparent distress. Behavior is calm, cooperative, appropriate ap3 for age. Pain: Complains of pain in right knee Pain currently is 7 out of 10 on a pain scale. Neuro: Level of Consciousness is awake, alert, obeys commands, Oriented to person, place, time, situation, Appropriate for age. Cardiovascular: Patient's skin is warm and dry. Respiratory: Airway is patent Respiratory effort is even, unlabored, Respiratory pattern is regular, symmetrical. Musculoskeletal: Reports pain in right knee. Injury Description: none. Historical: - Allergies: 12:40 No Known Allergies; ap3 - PMHx: 12:40 ADD/ADHD; ap3 - Immunization history:: Client reports receiving the 2nd dose of the Covid vaccine. - Infectious Disease History:: Denies. - Social history:: Smoking status: Patient reports the use of cigarette tobacco products, Reported history of juuling and/or vaping. - Family history:: not pertinent. - Hospitalizations: : No recent hospitalization is reported. Screenin:40 [facility] ED Fall Risk Assessment (Adult) History of falling in the last 3 months, ap3 including since admission No falls in past 3 months (0 pts) Confusion or Disorientation No (0 pts) Intoxicated or Sedated No (0 pts) Impaired Gait No (0 pts) Mobility Assist Device Used No (0 pt) Altered Elimination No (0 pt) Score/Fall Risk Level 0 - 2 = Low Risk Oriented to surroundings, Maintained a safe environment, Educated pt \T\ family on fall prevention, incl call for assistance when getting out of bed, Assessed \T\ reinforced patient's understanding of fall precautions, Hourly rounding (assess needs \T\ fall precautionary measures) done, Used ambulatory aids as needed (educated on \T\ assisted with). Abuse screen: Denies threats or abuse. Nutritional screening: No deficits noted. Tuberculosis screening: No symptoms or risk factors identified. Vital Signs: 12:38 BP 144 / 85; Pulse 119; Resp 18; Temp 98.4; Pulse Ox 100% ; Weight 120.2 kg; Height 5 ap3 ft. 6 in. ; Pain 7/10; 12:38 Body Mass Index 42.77 (120.20 kg, 167.64 cm) ap3 12:38 Pain Scale: Adult ap3 ED Course: 12:25 Patient arrived in ED. mr 12:35 Juan Rollins MD is Attending Physician. rn 12:40 Triage completed. ap3 12:41 Arm band placed on right wrist. ap3 12:50 Neto Martinez MD is Referral Physician. rn 12:53 Patient has correct armband on for positive identification. Provided Education on: ap3 discharge instructions. 12:53 No provider procedures requiring assistance completed. Patient did not have IV access ap3 during this emergency room visit. Administered Medications: No medications were administered Medication: 12:53 VIS not applicable for this client. ap3 Outcome: 12:50 Discharge ordered by . rn 12:53 Discharged to home ambulatory, ap3 12:53 Condition: good 12:53 Discharge instructions given to patient, Instructed on discharge instructions, follow up and referral plans. Demonstrated understanding of instructions, follow-up care, 12:53 Patient left the ED. ap3 Signatures: Pricilla Kiser, Pablo Shah mr Juan Rollins MD MD rn Prokisch, Amanda, RN RN ap3
[2024-08-22 13:00] VITALS: BP 144/85; TEMP 98.4; O2SAT 100
== END 2024-08-22 12:53 | disposition home or self-care (01) ==
LOC: ER 12:23
DX: M25.561 Pain in right knee (principal)
CPT/HCPCS: 99282